=== PATIENT | female | born 1960 | race American Indian/Alaskan Native ===

== ENCOUNTER 2017-09-28 05:15 | Emergency (ER) | payer OTHER ==
[~2017-09-28] VITALS: Ht 167.6 cm; Wt 93.9 kg
[~2017-09-28 05:15] MED LIST: AMOCLA875 PO; ASPI81CH PO; ATOR40TA PO; CLOP75 PO; DICL75ER PO; GABA300 PO; HYDCHL12.5 PO; HYDMOR2 PO; LEVFLO500 PO; LORA1 PO; LOSARTAN POTASS25 MG PO; METO25 PO; MICO100S VAG; ONDA4ODT MM; OXYC5 PO; PHENA200 PO; QUETIAPINE FUM100 MG PO; RXPHEN200 PO
[2017-09-28] MEDS ORDERED: Hydrocodone-Ap1 EA23 PO (05:31)
[2017-09-28] MEDS ORDERED: METF500 PO (05:32)
[2017-09-28] MEDS ORDERED: LOSA50 PO (05:32)
[2017-09-28] MEDS ORDERED: QUET100 PO (05:32)
== END 2017-09-28 05:49 | disposition home or self-care (01) ==
LOC: ER 05:15
DX: S60.221A Contusion of right hand, initial encounter (principal); Z88.8 Allergy status to other drugs, medicaments and biological substances; Z91.041 Radiographic dye allergy status; Z91.013 Allergy to seafood; Z79.899 Other long term (current) drug therapy; Z79.84 Long term (current) use of oral hypoglycemic drugs; Z79.82 Long term (current) use of aspirin; Z87.891 Personal history of nicotine dependence; W22.8XXA Striking against or struck by other objects, initial encounter
CPT/HCPCS: 73130; 99283

== ENCOUNTER → 2018-09-25 | Outpatient (CLI) | payer OTHER ==
[~2018-09-25] MED LIST changes: +HYDR1TAB94 PO; +Hydrocodone-Ap1 EA23 PO; +LOSA50 PO; +METF500 PO; +QUET100 PO; +Zofran8 MG PO
[2018-09-25 10:40] LABS: BASOPHILS ABSOLUTE AUTO 0.02 K/mm3 (0.00-0.23); BASOPHILS PERCENT AUTO 0 % (0-2); EOSINOPHILS ABSOLUTE AUTO 0.01 K/mm3 (0.00-0.68); EOSINOPHILS PERCENT AUTO 0 % (0-6); Hematocrit 43.1 % (33.0-51.0); IMMATURE GRAN ABSOLUTE AUTO 0.02 K/mm3 (0.00-0.10); IMMATURE GRAN PERCENT AUTO 0 % (0-1); LYMPHOCYTES ABSOLUTE AUTO 0.62 K/mm3 (0.84-5.20); LYMPHOCYTES PERCENT AUTO 10 % (21-46); MONOCYTES ABSOLUTE AUTO 0.42 K/mm3 (0.16-1.47); MONOCYTES PERCENT AUTO 6 % (4-13); Mean Corpuscular HGB 30.4 pg (26.0-34.0); Mean Corpuscular HGB Conc 34.8 g/dL (31.5-36.5); Mean Corpuscular Volume 87 fL (80-100); Mean Platelet Volume 9.5 fL (9.1-12.4); NEUTROPHILS ABSOLUTE AUTO 5.43 K/mm3 (1.96-9.15); NEUTROPHILS PERCENT AUTO 83 % (41-73); Platelet Count 235 K/mm3 (150-400); RDW Coefficient Variation 13.2 % (11.7-14.2); RDW Standard Deviation 41.9 fL (35.1-46.3); Red Blood Cell Count 4.93 M/mm3 (3.80-5.20); White Blood Cell Count 6.52 K/mm3 (4.00-11.30)
[2018-09-25 10:45] LABS: Bun/Creatinine Ratio 18.9 (12.0-20.0); Calcium, Blood 8.8 mg/dL (8.5-10.1); Creatinine, Blood 1.06 mg/dL (0.40-1.00); Potassium, Blood 3.4 mmol/L (3.5-5.5)
== END | disposition home or self-care (01) ==
LOC: LAB EV 10:35 → LAB SHORT 10:35
PROVIDERS: Physician Assistant Surgical
DX: R10.13 Epigastric pain (principal)
CPT/HCPCS: 80048; 83690; 85025

== ENCOUNTER 2019-10-04 23:47 | Inpatient (IN) | payer OTHER ==
[~2019-10-04] VITALS: Ht 170.2 cm; Wt 104.5 kg
[~2019-10-04 23:47] MED LIST changes: +ASPI325 PO; -Hydrocodone-Ap1 EA23 PO; +Norco 5-325 Ta1 EACH PO
[2019-10-05 00:15] LABS: PO2 Arterial 84.1 mmHg (80-100); pH Blood Arterial 7.56 (7.35-7.45)
[2019-10-05 00:16] LABS: BASOPHILS ABSOLUTE AUTO 0.03 K/mm3 (0.00-0.23); BASOPHILS PERCENT AUTO 0 % (0-2); EOSINOPHILS ABSOLUTE AUTO 0.02 K/mm3 (0.00-0.68); EOSINOPHILS PERCENT AUTO 0 % (0-6); Hematocrit 44.6 % (33.0-51.0); Hemoglobin 15.1 g/dL (11.5-16.0); IMMATURE GRAN ABSOLUTE AUTO 0.07 K/mm3 (0.00-0.10); IMMATURE GRAN PERCENT AUTO 1 % (0-1); LYMPHOCYTES ABSOLUTE AUTO 1.13 K/mm3 (0.84-5.20); LYMPHOCYTES PERCENT AUTO 8 % (21-46); MONOCYTES ABSOLUTE AUTO 0.54 K/mm3 (0.16-1.47); MONOCYTES PERCENT AUTO 4 % (4-13); Mean Corpuscular HGB Conc 33.9 g/dL (31.5-36.5); Mean Corpuscular Volume 89 fL (80-100); Mean Platelet Volume 9.5 fL (9.1-12.4); NEUTROPHILS PERCENT AUTO 87 % (41-73); Platelet Count 264 K/mm3 (150-400); RDW Coefficient Variation 12.3 % (11.7-14.2); RDW Standard Deviation 40.5 fL (35.1-46.3); Red Blood Cell Count 5.03 M/mm3 (3.80-5.20); White Blood Cell Count 13.49 K/mm3 (4.00-11.30)
[2019-10-05 01:01] LABS: Alanine Aminotransfer (ALT/SGP 51 U/L (12-78); Albumin, Blood 4.6 g/dL (3.4-5.0); Albumin/Globulin Ratio 1.1 (0.8-1.8); Alk Phos 70 U/L (50-136); Anion Gap 12 mmol/L (6-16); Aspartate Aminotrans (AST/SGOT 31 U/L (12-37); Bilirubin, Total 0.3 mg/dL (0.1-1.0); Blood Urea Nitrogen 20 mg/dL (8-24); Bun/Creatinine Ratio 22.3 (12.0-20.0); CO2, Blood 20 mmol/L (21-32); Calcium, Blood 9.7 mg/dL (8.5-10.1); Chloride, Blood 105 mmol/L (98-108); Globulin, Blood 4.3 g/dL (2.2-4.0); Glomerular Filtration Rate >60 (60-); Glucose, Blood 135 mg/dL (70-99); Potassium, Blood 3.4 mmol/L (3.5-5.5); Sodium, Blood 137 mmol/L (136-145); Total Protein, Blood 8.9 g/dL (6.4-8.2)
[2019-10-05] MEDS ORDERED: CALCIUM 600 +1 EA11 PO (03:18)
--- NOTE | 2019-10-05 04:58 | NUR ---
CLINIC RECEPTIONIST SUMMARY 0245 PT NEW ADMIT FROM ER. ARRIVED TO UNIT VIA STRETCHER. A/O X4. INTRODUCED TO ROOM AND STAFF. PT ARRIVED TO UNIT ON 2L O2 VIA NC WHICH PT STATED SHE TYPICALLY DOES NOT USE. PT DENIES SOB, CHEST PAIN, DIZZINESS. PT HAS LOWER QUAD ABD PAIN. MEDICATED WITH DILAUDID 1MG. CURRENTLY NPO FOR SCHEDULED COLONOSCOPY.
[2019-10-05 04:59] LABS: Hematocrit 43.2 % (33.0-51.0); Hemoglobin 14.1 g/dL (11.5-16.0); Mean Corpuscular HGB 29.5 pg (26.0-34.0); Mean Corpuscular HGB Conc 32.6 g/dL (31.5-36.5); Mean Corpuscular Volume 90 fL (80-100); Mean Platelet Volume 9.6 fL (9.1-12.4); Platelet Count 222 K/mm3 (150-400); RDW Coefficient Variation 12.4 % (11.7-14.2); Red Blood Cell Count 4.78 M/mm3 (3.80-5.20); White Blood Cell Count 12.89 K/mm3 (4.00-11.30)
[2019-10-05 05:12] LABS: Anion Gap 10 mmol/L (6-16); Blood Urea Nitrogen 17 mg/dL (8-24); Bun/Creatinine Ratio 20.3 (12.0-20.0); CO2, Blood 23 mmol/L (21-32); Calcium, Blood 8.9 mg/dL (8.5-10.1); Chloride, Blood 106 mmol/L (98-108); Creatinine, Blood 0.84 mg/dL (0.40-1.00); Glomerular Filtration Rate >60 (60-); Glucose, Blood 119 mg/dL (70-99); Potassium, Blood 3.6 mmol/L (3.5-5.5); Sodium, Blood 139 mmol/L (136-145)
[2019-10-05 12:24] LABS: Adenovirus F 40/41 Not Detected (NOT DETECT); Astrovirus Not Detected (NOT DETECT); Campylobacter Sp Not Detected (NOT DETECT); Cryptosporidium Not Detected (NOT DETECT); Cyclospora Cayetanensis Not Detected (NOT DETECT); E. Coli O157 Not Detected (NOT DETECT); Entamoeba Histolytica Not Detected (NOT DETECT); Enteroaggregative E. coli-EAEC Not Detected (NOT DETECT); Enteropathogenic E. coli-EPEC Not Detected (NOT DETECT); Enterotoxigenic E. coli-ETEC Not Detected (NOT DETECT); Giardia Lamblia Not Detected (NOT DETECT); Norovirus GI/GII Not Detected (NOT DETECT); Plesiomonas Shigelloides Not Detected (NOT DETECT); Rotavirus A Not Detected (NOT DETECT); Salmonella Sp Not Detected (NOT DETECT); Sapovirus Not Detected (NOT DETECT); Shiga Toxin-prod E. coli-STEC Not Detected (NOT DETECT); Shigella/Enteroin E. coli-EIEC Not Detected (NOT DETECT); Vibrio Cholerae Not Detected (NOT DETECT); Vibrio Sp Not Detected (NOT DETECT); Yersinia Enterocolitica Not Detected (NOT DETECT)
--- NOTE | 2019-10-05 18:10 | NUR ---
PT HAS BEEN SLEEPING MOST OF SHIFT. SHE REPORTS GREAT PAIN AND IS MEDICATED PER EMAR. SHE REMAINS NPO . CALL LIGHT WITHIN REACH. PT ALERT AND ORIENTED WHEN AWAKE AND ABLE TO EXPRESS ANY NEEDS.
[2019-10-06 05:05] LABS: BASOPHILS ABSOLUTE AUTO 0.05 K/mm3 (0.00-0.23); BASOPHILS PERCENT AUTO 1 % (0-2); EOSINOPHILS ABSOLUTE AUTO 0.09 K/mm3 (0.00-0.68); EOSINOPHILS PERCENT AUTO 1 % (0-6); Hematocrit 39.4 % (33.0-51.0); Hemoglobin 13.1 g/dL (11.5-16.0); IMMATURE GRAN ABSOLUTE AUTO 0.03 K/mm3 (0.00-0.10); IMMATURE GRAN PERCENT AUTO 0 % (0-1); LYMPHOCYTES ABSOLUTE AUTO 2.23 K/mm3 (0.84-5.20); LYMPHOCYTES PERCENT AUTO 23 % (21-46); MONOCYTES ABSOLUTE AUTO 0.89 K/mm3 (0.16-1.47); MONOCYTES PERCENT AUTO 9 % (4-13); Mean Corpuscular HGB 29.6 pg (26.0-34.0); Mean Corpuscular HGB Conc 33.2 g/dL (31.5-36.5); Mean Corpuscular Volume 89 fL (80-100); Mean Platelet Volume 9.5 fL (9.1-12.4); NEUTROPHILS ABSOLUTE AUTO 6.58 K/mm3 (1.96-9.15); NEUTROPHILS PERCENT AUTO 67 % (41-73); Platelet Count 205 K/mm3 (150-400); RDW Coefficient Variation 12.6 % (11.7-14.2); RDW Standard Deviation 41.4 fL (35.1-46.3); Red Blood Cell Count 4.43 M/mm3 (3.80-5.20); White Blood Cell Count 9.87 K/mm3 (4.00-11.30)
[2019-10-06 05:25] LABS: Alanine Aminotransfer (ALT/SGP 34 U/L (12-78); Albumin, Blood 3.4 g/dL (3.4-5.0); Albumin/Globulin Ratio 0.9 (0.8-1.8); Alk Phos 52 U/L (50-136); Anion Gap 8 mmol/L (6-16); Aspartate Aminotrans (AST/SGOT 23 U/L (12-37); Bilirubin, Total 0.6 mg/dL (0.1-1.0); Blood Urea Nitrogen 11 mg/dL (8-24); Bun/Creatinine Ratio 12.7 (12.0-20.0); CO2, Blood 26 mmol/L (21-32); Calcium, Blood 8.6 mg/dL (8.5-10.1); Chloride, Blood 106 mmol/L (98-108); Creatinine, Blood 0.86 mg/dL (0.40-1.00); Globulin, Blood 3.6 g/dL (2.2-4.0); Glomerular Filtration Rate >60 (60-); Glucose, Blood 102 mg/dL (70-99); Potassium, Blood 3.4 mmol/L (3.5-5.5); Sodium, Blood 140 mmol/L (136-145)
--- NOTE | 2019-10-06 07:14 | NUR ---
SHIFT SUMMARY PT IS A 59 Y/O FEMALE, ADMITTED FOR A GI BLEED. SHE IS A&O X 4, INDEPENDENT IN THE ROOM. PT REPORTED A HEADACHE AND ABD PAIN, AND WAS MEDICATED X2 WITH PRN IV DILAUDID. AT START OF SHIFT, PT COMPLAINED OF NAUSEA THAT WAS NOT RESOLVED WITH PRN ZOFRAN. THE HOSPITALIST DR MCCULLOUGH WAS NOTIFIED, AND A OT DOSE OF COMPAZINE ORDERED, WHICH RESOLVED THE PT'S NAUSEA. TELE SHOWED NSR IN THE 70S. PT HAD A SLIGHTLY ELEVATED TEMP AT 100.9 TEMPORALLY AND 99.6 ORALLY. SHE WAS MEDICATED WITH PRN TYLENOL. ALL OTHER VITALS STABLE. PT HAD ONE EPISODE OF BRIGHT RED BLOODY STOOL DURING THE NIGHT. NO OTHER ACUTE CHANGES IN PT CONDITION NOTED. WILL CONTINUE TO MONITOR AND TREAT PER EMAR UNTIL HAND OFF TO DAY SHIFT RN.
--- NOTE | 2019-10-06 17:38 | NUR ---
SUMMARY PT RESTING QUIELTY IN BED, WAKES EASILY, IS ALERT AND ORIENTED AND INDEPENDENT IN THE ROOM, PT MED PER EMAR FOR PAIN AND NAUSEA, ADVANCED TO CLEAR LIQUIDS TODAY, MALLORY WELL, VSS, WILL CONT TO MONITOR
[2019-10-07 04:57] LABS: BASOPHILS ABSOLUTE AUTO 0.05 K/mm3 (0.00-0.23); BASOPHILS PERCENT AUTO 1 % (0-2); EOSINOPHILS ABSOLUTE AUTO 0.19 K/mm3 (0.00-0.68); EOSINOPHILS PERCENT AUTO 2 % (0-6); Hematocrit 39.9 % (33.0-51.0); Hemoglobin 13.1 g/dL (11.5-16.0); IMMATURE GRAN ABSOLUTE AUTO 0.03 K/mm3 (0.00-0.10); IMMATURE GRAN PERCENT AUTO 0 % (0-1); LYMPHOCYTES ABSOLUTE AUTO 2.59 K/mm3 (0.84-5.20); LYMPHOCYTES PERCENT AUTO 27 % (21-46); MONOCYTES ABSOLUTE AUTO 0.85 K/mm3 (0.16-1.47); MONOCYTES PERCENT AUTO 9 % (4-13); Mean Corpuscular HGB 29.9 pg (26.0-34.0); Mean Corpuscular HGB Conc 32.8 g/dL (31.5-36.5); Mean Corpuscular Volume 91 fL (80-100); Mean Platelet Volume 9.4 fL (9.1-12.4); NEUTROPHILS ABSOLUTE AUTO 5.99 K/mm3 (1.96-9.15); NEUTROPHILS PERCENT AUTO 62 % (41-73); Platelet Count 199 K/mm3 (150-400); RDW Coefficient Variation 12.6 % (11.7-14.2); Red Blood Cell Count 4.38 M/mm3 (3.80-5.20)
[2019-10-07 05:20] LABS: Alanine Aminotransfer (ALT/SGP 33 U/L (12-78); Albumin, Blood 3.5 g/dL (3.4-5.0); Albumin/Globulin Ratio 0.9 (0.8-1.8); Alk Phos 51 U/L (50-136); Anion Gap 9 mmol/L (6-16); Aspartate Aminotrans (AST/SGOT 25 U/L (12-37); Bilirubin, Total 0.6 mg/dL (0.1-1.0); Blood Urea Nitrogen 10 mg/dL (8-24); Bun/Creatinine Ratio 11.3 (12.0-20.0); CO2, Blood 27 mmol/L (21-32); Calcium, Blood 8.7 mg/dL (8.5-10.1); Chloride, Blood 105 mmol/L (98-108); Creatinine, Blood 0.89 mg/dL (0.40-1.00); Globulin, Blood 3.8 g/dL (2.2-4.0); Glomerular Filtration Rate >60 (60-); Glucose, Blood 89 mg/dL (70-99); Magnesium, Blood 2.3 mg/dL (1.6-2.4); Potassium, Blood 3.6 mmol/L (3.5-5.5); Sodium, Blood 141 mmol/L (136-145); Total Protein, Blood 7.3 g/dL (6.4-8.2)
--- NOTE | 2019-10-07 06:50 | NUR ---
SHIFT SUMMARY: VSS. TEMP 100.6 THIS AM. A/OX4. COMMUNICATES NEEDS. INDEPENDENT IN ROOM. CONT W/ABD PAIN IN RLQ. ALSO REPORTING NAUSEA AND HEADACHE IN RESPONSE TO ABD PAIN. DILAUDID ADMINISTERED X3. FIRST DOSE, PT REPORTED LITTLE TO NO RELIEF. AFTER SECOND DOSE OF DILAUDID, PT WAS ABLE TO SLEEP. REPORTING MAROON COLORED STOOL W/RED STREAKS YESTERDAY MORNING. HAS NOT HAD A BM SINCE. HGB IS STABLE. MALLORY CLEAR LIQUIDS WITH NO VOMITING. IV ABT INFUSED ORDERED. NO ACUTE CHANGES.
--- NOTE | 2019-10-07 17:01 | NUR ---
SUMMARY PT RESTING QUIETLY IN BED, WAKES EASILY, MED PER EMAR FOR PAIN AND NAUSEA, PT TOLERATING FULL LIQUID DIET, PT HAS BEEN PLEASANT AND COOPERATIVE WITH CARE, INDEPENDENT IN THE ROOM, VSS, NO ACUTE CHANGES, WILL CONT TO MONITOR
--- NOTE | 2019-10-07 19:05 | NUR ---
ASSUMED CARE RECEIVED REPORT FROM JAKE HILLS. ASSUMED CARE OF PT. PT RESTING COMFORTABLY AT THIS TIME, NO S/S ACUTE DISTRESS NOTED. DENIES NEEDS. CALL LIGHT, POSSESSIONS IN REACH, BED IN LOWEST POSITION. WILL CONTINUE TO MONITOR.
[2019-10-08 05:02] LABS: BASOPHILS ABSOLUTE AUTO 0.05 K/mm3 (0.00-0.23); BASOPHILS PERCENT AUTO 1 % (0-2); EOSINOPHILS ABSOLUTE AUTO 0.24 K/mm3 (0.00-0.68); EOSINOPHILS PERCENT AUTO 3 % (0-6); Hematocrit 36.1 % (33.0-51.0); IMMATURE GRAN ABSOLUTE AUTO 0.02 K/mm3 (0.00-0.10); IMMATURE GRAN PERCENT AUTO 0 % (0-1); LYMPHOCYTES ABSOLUTE AUTO 1.86 K/mm3 (0.84-5.20); LYMPHOCYTES PERCENT AUTO 23 % (21-46); MONOCYTES ABSOLUTE AUTO 0.83 K/mm3 (0.16-1.47); MONOCYTES PERCENT AUTO 10 % (4-13); Mean Corpuscular HGB 30.1 pg (26.0-34.0); Mean Corpuscular HGB Conc 33.2 g/dL (31.5-36.5); Mean Corpuscular Volume 91 fL (80-100); Mean Platelet Volume 9.4 fL (9.1-12.4); NEUTROPHILS ABSOLUTE AUTO 5.07 K/mm3 (1.96-9.15); NEUTROPHILS PERCENT AUTO 63 % (41-73); Platelet Count 176 K/mm3 (150-400); RDW Coefficient Variation 12.4 % (11.7-14.2); RDW Standard Deviation 40.8 fL (35.1-46.3); Red Blood Cell Count 3.99 M/mm3 (3.80-5.20); White Blood Cell Count 8.07 K/mm3 (4.00-11.30)
[2019-10-08 05:25] LABS: Anion Gap 8 mmol/L (6-16); Blood Urea Nitrogen 9 mg/dL (8-24); Bun/Creatinine Ratio 9.7 (12.0-20.0); CO2, Blood 27 mmol/L (21-32); Calcium, Blood 8.5 mg/dL (8.5-10.1); Chloride, Blood 107 mmol/L (98-108); Creatinine, Blood 0.93 mg/dL (0.40-1.00); Glomerular Filtration Rate >60 (60-); Glucose, Blood 106 mg/dL (70-99); Potassium, Blood 3.4 mmol/L (3.5-5.5); Sodium, Blood 142 mmol/L (136-145)
--- NOTE | 2019-10-08 07:52 | NUR ---
SHIFT SUMMARY PT RESTING COMFORTABLY AT THIS TIME, NO S/S ACUTE DISTRESS NOTED. SLEPT ON AND OFF T/O NIGHT. PAIN MANAGED WITH MEDICATIONS AND K-PACK TOLERATED. PT DENIES NEEDS AT THIS TIME. CALL LIGHT, POSSESSIONS IN REACH. REPORT GIVEN TO DAY SHIFT RN.
--- NOTE | 2019-10-08 17:40 | NUR ---
PT AOX4 AND COOPERATIVE OF CARE. PT TREATED FOR PAIN PER EMAR. THIS AM PT STATED THE DILAUDID WAS NOT COMPLETELY TAKING CARE OF HER PAIN AND THEN THIS WAS INCREASING HER NAUSEA. DR LUJAN WAS NOTIFIED AND HE ADDED NORCO TO EMAR PT TOLERATES THIS AT HOME. PT HAS BEEN DOING MUCH BETTER AND HAS NOT NEEDED HER DILAUDID FOR ABDOMINAL PAIN OFTEN. PT HAS BEEN RESTING IN BED, SHE IS INDEPENDENT IN ROOM. NO DISTRESS NOTED AT THIS TIME. PT HAS REQUESTED DIET BE ADVANCED AND REGULAR DIET IS NOW ORDERED. WILL CONTINUE TO MONITOR.
--- NOTE | 2019-10-08 19:10 | NUR ---
ASSUMED CARE RECEIVED REPORT FROM JAKE SERRANO. ASSUMED CARE OF PT. FINISHING DINNER AT THIS TIME, NO S/S ACUTE DISTRESS NOTED. DISCUSSED PLAN FOR CARE C PT, PT AGREEABLE. DENIES NEEDS AT THIS TIME. CALL LIGHT, POSSESSIONS IN REACH, WILL CONTINUE TO MONITOR.
[2019-10-09 04:54] LABS: BASOPHILS ABSOLUTE AUTO 0.03 K/mm3 (0.00-0.23); BASOPHILS PERCENT AUTO 0 % (0-2); EOSINOPHILS ABSOLUTE AUTO 0.23 K/mm3 (0.00-0.68); EOSINOPHILS PERCENT AUTO 3 % (0-6); Hematocrit 38.8 % (33.0-51.0); Hemoglobin 12.7 g/dL (11.5-16.0); IMMATURE GRAN ABSOLUTE AUTO 0.02 K/mm3 (0.00-0.10); IMMATURE GRAN PERCENT AUTO 0 % (0-1); LYMPHOCYTES ABSOLUTE AUTO 1.53 K/mm3 (0.84-5.20); LYMPHOCYTES PERCENT AUTO 22 % (21-46); MONOCYTES ABSOLUTE AUTO 0.55 K/mm3 (0.16-1.47); MONOCYTES PERCENT AUTO 8 % (4-13); Mean Corpuscular HGB 29.7 pg (26.0-34.0); Mean Corpuscular HGB Conc 32.7 g/dL (31.5-36.5); Mean Corpuscular Volume 91 fL (80-100); Mean Platelet Volume 9.4 fL (9.1-12.4); NEUTROPHILS ABSOLUTE AUTO 4.74 K/mm3 (1.96-9.15); NEUTROPHILS PERCENT AUTO 67 % (41-73); Platelet Count 209 K/mm3 (150-400); RDW Coefficient Variation 12.3 % (11.7-14.2); RDW Standard Deviation 41.1 fL (35.1-46.3); Red Blood Cell Count 4.27 M/mm3 (3.80-5.20)
[2019-10-09 05:20] LABS: Anion Gap 9 mmol/L (6-16); Blood Urea Nitrogen 10 mg/dL (8-24); Bun/Creatinine Ratio 10.2 (12.0-20.0); CO2, Blood 24 mmol/L (21-32); Calcium, Blood 8.5 mg/dL (8.5-10.1); Chloride, Blood 108 mmol/L (98-108); Creatinine, Blood 0.98 mg/dL (0.40-1.00); Glomerular Filtration Rate >60 (60-); Glucose, Blood 155 mg/dL (70-99); Potassium, Blood 3.8 mmol/L (3.5-5.5); Sodium, Blood 141 mmol/L (136-145)
--- NOTE | 2019-10-09 07:11 | NUR ---
SHIFT SUMMARY PT RESTING COMFORTABLY AT THIS TIME, NO S/S ACUTE DISTRESS NOTED. WAS MONITORED EVERY 1-2 HOURS WITH NEEDS MET. PAIN CONTROLLED WITH MEDS PER EMAR. DENIES NEEDS AT THIS TIME. CALL LIGHT, POSSESSIONS IN REACH, BED IN LOWEST POSITION. REPORT GIVEN TO DAY RN.
[2019-10-09] MEDS ORDERED: ACET325 PO (12:04)
[2019-10-09] MEDS ORDERED: CIPR500 PO (12:05)
[2019-10-09] MEDS ORDERED: FAMO20 PO (12:05)
[2019-10-09] MEDS ORDERED: VISBIOME 112.51 EACH PO (12:06)
[2019-10-09] MEDS ORDERED: METR500 PO (12:07)
[2019-10-09] MEDS ORDERED: MIRALAX17 G1 PO (12:08)
[2019-10-09] MEDS ORDERED: ZOFRAN4 MG PO (12:08)
--- NOTE | 2019-10-09 13:41 | NUR ---
PT AOX4 AND COOPERATIVE OF CARE. PT TREATED FOR ABDOMINAL PAIN PER EMAR. PT HAD ALL PAPERWORK REVIEWED AND EDUCATIONAL MATERIAL SENT WITH PT. NO DISTRESS NOTED AND PT INDEPENDENT IN ROOM. THIS F[employer]ION CONSULTANT SALES ESCORTED PT OUT OF HOSPITAL. ALL PERSONAL BELONINGS COLLECTED AND MEDS FAXED TO [facility].
== END 2019-10-09 12:32 | disposition home or self-care (01) | DRG 392 ==
LOC: ER 23:47 → MEDS 23:48 → ER 10-05 02:31 → MEDS 10-05 02:35 → ENPENDDIS 10-09 11:00 → MEDS 10-09 12:32
PROVIDERS: Emergency Medicine; Family Medicine; Internal Medicine; Internal Medicine Gastroenterology; ADMIT Internal Medicine
DX: K52.9 Noninfective gastroenteritis and colitis, unspecified (principal); K92.1 Melena; I10 Essential (primary) hypertension; E87.6 Hypokalemia; M54.40 Lumbago with sciatica, unspecified side; I25.10 Atherosclerotic heart disease of native coronary artery without angina pectoris; Z95.5 Presence of coronary angioplasty implant and graft; Z85.038 Personal history of other malignant neoplasm of large intestine; Z79.01 Long term (current) use of anticoagulants; Z79.82 Long term (current) use of aspirin; K76.0 Fatty (change of) liver, not elsewhere classified
CPT/HCPCS: 0097U; 36415; 36600; 74019; 74176; 80048; 80053; 82803; 83605; 83690; 83735; 83993; 85025; 85027; 86140; 93005; 93010; 96361; 96365; 96366; 96367; 96374; 96375; 96376; 99285-25; A9270; A9270-GY; C9113; G0378; J0744; J0780; J1170; J2405; J7030; J7120

== ENCOUNTER 2023-01-22 11:10 | Inpatient (IN) | payer OTHER ==
[2023-01-22] VITALS (24 sets, daily range): BP systolic 110–165; BP diastolic 71–109
[~2023-01-22] VITALS: Ht 167.6 cm; Wt 109.3 kg
[~2023-01-22 11:10] MED LIST changes: +ACET325 PO; +CALCIUM; +CALCIUM 600 +1 EA11 PO; +CIPR500 PO; +FAMO20 PO; +FLAXSEED OIL1000 M1; +HYDROCODONE-AC1 EA19 PO; +LOSARTAN-HCTZ1 EACH PO; +METR500 PO; +MIRALAX17 G1 PO; +MULVITA; +Mag-Tab Sr84 MG; +NARCAN4 M1; +Percocet 5-3251 EACH PO; +QUET25 PO; +VISBIOME 112.51 EACH PO; +ZOFRAN4 MG PO; +[UNRECOGNIZED DRUG - OTHER] PO
--- NOTE | 2023-01-22 12:16 | NUR ---
Ambulatory in Day Surgery. History, Chart, Medications and Allergies reviewed before start of procedure. Lungs clear T/O to Auscultation. Patient confirms NPO status and agrees with scheduled surgery. Pre-Op teaching done. Pt verbalizes understanding. Patient States Post-Procedure ride home has been arranged. PT BELONGINGS PLACED UNDERNEATH GURNEY FOR SAFEKEEPING. PT GLASSES TAKEN TO PACU FOR SAFEKEEPING.
--- NOTE | 2023-01-22 16:02 | NUR ---
REPORT RECEIVED FROM ZION JOSEPH. VSS. PT ABLE TO REPOSITION SELF IN BED. PT REQUESTING PO FOOD AND FLUIDS AND TOLERATING THEM WELL. PT DRESSING TO LEFT WRIST IS C/D/I WITH SLING IN PLACE. PT REPORTS 3/10 ACHING PAIN TO LEFT WRIST. PT DENIES NAUSEA OR OTHER COMPLAINTS.
--- NOTE | 2023-01-22 16:54 | NUR ---
Patient up to Ambulate independently. Gait steady. Discharge instructions reviewed with patient. Patient verbalizes understanding. Copy given to patient to take home. Dressing to procedure site clean, dry, intact with no visible drainage, swelling, erythema or bruising noted. PT ABLE TO MOVE FINGERS ON OPERATIVE SIDE. PT HAS BRISK CAPILLARY REFILL. Patient States Post-Procedure ride home has been arranged. DR LE CONSULTED FOR O2 SATURATIONS. PT GIVEN DUONEB PER DR LE ORDERS TO IMPROVE O2 SATS. PT ALSO GIVEN INCENTIVE SPIROMETER AND INSTRUCTED HOW TO USE. Lungs clear T/O to Auscultation.
--- NOTE | 2023-01-22 17:25 | NUR ---
DR QUEVEDO INSTRUCTED PT OKAY FOR DISCHARGE LONG HER OXYGEN SATURATIONS ARE STAYING ABOVE 92 AND PT FEELS WELL ENOUGH TO GO HOME. PT WAS GIVEN INCENTIVE SPIROMETER TO TAKE HOME AND SAYS SHE CAN CHECK HER PULSE OXIMETRY AT HOME. PT SAYS SHE WILL BE MORE COMFORTABLE AT HOME AND IS ASYMPTOMATIC. HER LUNGS ARE CLEAR TO AUSCULTATION AND EXHIBITING NO SIGNS OF SOB. Discharged via AMBULATION WITH A NURSE to private car for ride home.
--- NOTE | 2023-01-27 08:03 | NUR ---
01/27/23 0803 Caitlyn Ely VERIFICATIONS: EDIT CHART.
== END 2023-01-22 17:28 | disposition home or self-care (01) | DRG 512 ==
LOC: ORSCMMR 11:10 → ORD 12:30 → SURS 17:00 → ORSCMMR 17:26 → SURS 17:27
PROVIDERS: ADMIT Orthopaedic Surgery
PROC: 0PSJ04Z Reposition Left Radius with Internal Fixation Device, Open Approach (ICD-10-PCS; principal; 2023-01-22 12:30)
DX: S52.572A Other intraarticular fracture of lower end of left radius, initial encounter for closed fracture (principal); F41.9 Anxiety disorder, unspecified; F31.9 Bipolar disorder, unspecified; I10 Essential (primary) hypertension; W10.8XXA Fall (on) (from) other stairs and steps, initial encounter; Z85.038 Personal history of other malignant neoplasm of large intestine; Z86.73 Personal history of transient ischemic attack (TIA), and cerebral infarction without residual deficits; Z98.890 Other specified postprocedural states; Z95.5 Presence of coronary angioplasty implant and graft; Z90.710 Acquired absence of both cervix and uterus; Z87.891 Personal history of nicotine dependence; Y93.02 Activity, running; Z79.82 Long term (current) use of aspirin; Z79.899 Other long term (current) drug therapy; Z79.891 Long term (current) use of opiate analgesic; Z90.89 Acquired absence of other organs; Z91.013 Allergy to seafood; Z91.041 Radiographic dye allergy status; Z88.5 Allergy status to narcotic agent
CPT/HCPCS: A9270; C1713; J0171; J0690; J1100; J1170; J2250; J2405; J2704; J2765; J3010; J7120

== ENCOUNTER 2023-06-17 06:21 | Day surgery (SDC) | payer OTHER ==
[~2023-06-17] VITALS: Ht 170.2 cm; Wt 113.5 kg
[2023-06-17] MEDS ORDERED: LIPITOR10 MG PO (06:49)
[2023-06-17] MEDS ORDERED: CLOP75 PO (06:49)
--- NOTE | 2023-06-17 08:08 | NUR ---
06/17/23 0807 GOVIND ORONA PT IN PRE OP AREA, PT VERBALIZED THAT EMY CONTRERAS DID NOT TALK WITH PATIENT IN PRE OP APPT ABOUT LOCAL INJECTION. PT EXPRESSED WISHES TO BE "KNOCKED OUT" OR PUT TO SLEEP FOR THIS PROCEDURE. THIS RN ADVISED ONCE EMY CONTRERAS HAD ARRIVED WE COULD DISCUSS PLAN GOING FORWARD WITH HER. CHARGE, RN LES ATTEMPTED TO CONTACT DR. QUEVEDO AND ADVISE OF THIS BUT EMY CONTRERAS PHONE WAS ON DO NOT DISTURB. EYM CONTRERAS ARRIVED AT 0734. DISCUSSION WITH PATIENT, ATTEMPTED PRE OP INJECTION AFTER 2MG VERSED AND PT BEGAN CRYING, BECAME TEARFUL, AND WAS EXPRESSING NOISE. EMY CONTRERAS STOPPED ATTEMPTING INJECTION. JAMIE CONTRERAS WAS CONSULTED AND PROCEDURE CHANGED TO MAC.
[2023-06-17 08:27] VITALS: BP 139/80
--- NOTE | 2023-06-17 08:54 | NUR ---
06/17/23 0854 George Garibay TORADOL 15MG IV PROVIDED AT 0850 FOR 6/10 LEFT HAND PAIN. HAND IS ELEVATED AND ICE ON ARM.
== END 2023-06-17 09:30 | disposition home or self-care (01) ==
LOC: ORSCSDS 06:21
PROVIDERS: Orthopaedic Surgery
PROC: 01N54ZZ Release Median Nerve, Percutaneous Endoscopic Approach (ICD-10-PCS; principal; 2023-06-17 07:30)
DX: G56.02 Carpal tunnel syndrome, left upper limb (principal); I10 Essential (primary) hypertension; I25.2 Old myocardial infarction; E66.9 Obesity, unspecified; Z68.39 Body mass index [BMI] 39.0-39.9, adult; Z79.899 Other long term (current) drug therapy; Z79.82 Long term (current) use of aspirin
CPT/HCPCS: J1885; J2250; J2704; J3010; J7120